=== PATIENT | male | born 1935 | race Caucasian/White ===

== ENCOUNTER 2021-10-20 16:51 | Emergency (ER) | payer MEDICARE ==
[~2021-10-20] VITALS: Ht 162.6 cm; Wt 62.7 kg
--- NOTE | 2021-10-20 17:11 | PHYS DOC ---
General Adult EDM: Chief Complaint: MECHANICAL FALL HPI: HPI: Patient is an 86-year-old male who presents to the emergency department today following up's fall from standing that occurred 2 hours prior to arrival. Patient reports that he tripped and fell. He reports hitting his head. He is reporting left shoulder bilateral rib pain and low back pain. Patient denies blood thinner use, dizziness, loss of bowel or bladder although he has a history of urinary incontinence due to prostate cancer, saddle anesthesias, nausea, vomiting, neck pain, abdominal pain, chest wall pain. (ARNOLD LUGO APRN) Review of Systems: Review of Systems: HENT: see HPI Cardiovascular: see HPI GI: see HPI : see HPI Musculoskeletal: see HPI Neurologic:see HPI (ARNOLD LUGO APRN) Physical Exam: PE: Constitutional: Well developed, well nourished, no acute distress, non-toxic appearance. [] HENT: Normocephalic, atraumatic, bilateral external ears normal, oropharynx moist, no oral exudates, nose normal. [] Eyes: PERRL, EOMI, conjunctiva normal, no discharge. [] Neck: Normal range of motion, no bony spinal tenderness, supple, no stridor. [] Cardiovascular:Heart rate regular rhythm, no murmur [] Lungs & Thorax: Bilateral breath sounds clear to auscultation, pain with palpation to anterior and posterior portions of left ribs, no flail segments [] Abdomen: Bowel sounds normal, soft, no tenderness, no masses, no pulsatile masses. [] Skin: Warm, dry, no erythema, no rash. [] Back: Lumbar tenderness with palpation, no obvious deformities Extremities: No tenderness, no cyanosis, no clubbing, ROM intact, no edema. [] Left shoulder: Obvious deformity noted to left shoulder, decreased extension due to pain, neuro intact Neurologic: Alert and oriented X 3, normal motor function, normal sensory function, no focal deficits noted. [] Psychologic: Affect normal, judgement normal, mood normal. [] (ARNOLD LUGO APRN) EKG: EKG: [] (ARNOLD LUGO APRN) Radiology/Procedures: Radiology/Procedures: []PROCEDURE: CT LUMBAR SPINE WO CONTRAST Exam: CT of chest, abdomen and pelvis without contrast. CT lumbar spine INDICATION: Fall TECHNIQUE: Sequential axial images through the chest, abdomen and pelvis obtained without IV contrast. Sagittal and coronal reformatted images were reconstructed from the axial data and reviewed. Cone-down reconstructed images of the lumbar spine were also reviewed. Exposure: One or more of the following in the visualized dose reduction techniques were utilized for this examination: 1. Automated exposure control 2. Adjustment of the MA and/or KV according to patient size 3. Use of iterative of reconstructive technique Comparisons: None FINDINGS: Visual is portions of the thyroid are unremarkable. No enlargement isn't lymph nodes are identified. Heart size is normal. No pericardial effusion. Thoracic aorta has normal course and caliber. Pulmonary artery is not enlarged. Airways are patent. No consolidation or pneumothorax. There are innumerable pulmonary nodules diffusely throughout the lungs the largest nodule in the right middle lobe measuring approximately 1.7 cm. No pleural effusion or thickening. Evaluation of solid organs is limited secondary to noncontrast technique. There are several hypoattenuating masses noted diffusely throughout the liver, largest in the anterior right hepatic lobe which measures approximately 3 cm in diameter. Spleen is mildly enlarged measuring 14.3 cm in long axis. Pancreas, gallbladder and adrenals are unremarkable. No perinephric inflammation or hydronephrosis. Several hypoattenuating lesions noted within the kidneys bilaterally incompletely characterized on noncontrast study. No renal or ureteral calculi are identified. Bladder is decompressed not well evaluated. Prostate is not enlarged. Large hiatal hernia containing majority the stomach, transverse colon and small bowel. Remainder of the large and small bowel are unremarkable. No free intra- abdominal air or fluid. No obstruction. There are several soft tissue nodules in the mesentery largest in the left paracolic gutter measuring up to 2.4 cm in diameter. Abdominal aorta has normal course and caliber. No enlarged intra-abdominal nodes are identified. Nondisplaced fractures involving the anterolateral left sixth and seventh ribs. Lumbar spine: Scoliotic curvature lumbar spine. Vertebral body heights are well-maintained. Fracture to the lumbar spine is not identified. Multilevel spondylotic changes lumbar spine with degenerative disc disease greatest at L2-L3, L3-L4 and L4-L5. Mild bilateral facet arthropathy is also noted lumbar spine. IMPRESSION: 1. Mildly displaced fracture involving the left anterolateral sixth and seventh rib. 2. Innumerable pulmonary nodules throughout the lungs favored represent metastatic disease. 3. Numerous hypoattenuating nodules in the liver, likely related to metastatic disease. 4. Several soft tissue mesenteric nodules as described above. 5. No acute traumatic injury at the lumbar spine. Electronically signed by: Asiya Mott MD (10/20/2021 6:16 PM) [facility] DICTATED AND SIGNED BY: ASIYA MOTT MD DATE: 10/20/21 1805 CC: ARNOLD LUGO APRN; KRISTEN POWER MD ~ PROCEDURE: SHOULDER 2+V LEFT Exam: Left shoulder 3 views INDICATION: Fall TECHNIQUE: Frontal view of the left shoulder with internal and external rotation and transscapular Y views Comparisons: None FINDINGS: Bone mineralization is normal. No acute or healed fractures. Soft tissues are unremarkable. Joint spaces are well-maintained. IMPRESSION: No acute osseous abnormality Electronically signed by: Asiya Mott MD (10/20/2021 5:38 PM) [facility] DICTATED AND SIGNED BY: ASIYA MOTT MD DATE: 10/20/21 1737 CC: EMERGENCY,DEPARTMENT; ARNOLD LUGO APRN; KRISTEN POWER MD ~ SEX: M EXAM STATUS: REG ER ORD. PHYSICIAN: ARNOLD LUGO APRN REASON: fall PROCEDURE: CT HEAD AND CERVICAL SPINE WO CT HEAD AND C-SPINE WO Clinical indications: Reason: fall /head injury and neck pain. NONCONTRAST HEAD CT COMPARISON: None available. Technique: Noncontrast axial cross sectional scanning of the head was performed. PQRS compliance Statement One or more of the following individualized dose reduction techniques were utilized for this study: 1. Automated exposure control 2. Adjustment of the mA and/or kV according to patient size 3. Use of iterative reconstruction technique Findings: No acute intracranial hemorrhage or midline shift or mass-effect or hydrocephalus or extra-axial fluid collection is seen. Bilateral moderate periventricular white matter hypodensity is seen consistent with chronic small vessel ischemic disease in this age group. No skull fracture or pneumocephalus is seen. No opacification of the mastoid sinuses or the middle ear cavities is seen. There is nodular mucosal thickening of the right sphenoid sinus. IMPRESSION: No acute intracranial hemorrhage is seen. Moderate chronic small vessel ischemic disease. CT STUDY OF THE CERVICAL SPINE WITHOUT CONTRAST TECHNIQUE: Noncontrast helical CT scanning of the cervical spine was performed. Multiplanar 2-D reconstructions were generated. FINDINGS: No acute fracture is seen. No lytic process or discitis is seen. There is grade 1 anterolisthesis of C3-4 and C4-5 and C5-6. Degenerative facet arthropathy is seen. Some facet joints are fused. There is no perching of facet joints. Spinous processes are intact. No prevertebral soft tissue swelling is evident. There is a left apical lung nodule which is not completely seen in this study. It measures 8 mm in size. IMPRESSION: No acute cervical spine fracture. Degenerative cervical spondylosis. 8 mm left apical lung nodule. Electronically signed by: Raphael Brumfield MD (10/20/2021 6:00 PM) [id number] DICTATED AND SIGNED BY: RAPHAEL BRUMFIELD MD DATE: 10/20/211751 CC: ARNOLD LUGO APRN; KRISTEN POWER MD ~ (ARNOLD LUGO APRN) Heart Score: C/O Chest Pain: N/A Risk Factors: Risk Factors: DM, Current or recent (<one month) smoker, HTN, HLP, family history of CAD, obesity. Risk Scores: Score 0 - 3: 2.5% MACE over next 6 weeks - Discharge Home Score 4 - 6: 20.3% MACE over next 6 weeks - Admit for Clinical Observation Score 7 - 10: 72.7% MACE over next 6 weeks - Early Invasive Strategies (ARNOLD LUGO APRN) Course & Med Decision Making: Course & Med Decision Making Pertinent Labs and Imaging studies reviewed. (See chart for details) [] Patient presents to the emergency department following a fall with complaints of left shoulder right lateral rib low back pain. Imaging performed of patient's head, neck, lumbar spine, left shoulder and chest abdomen and pelvis. CT scan of head and neck showed no acute findings. Shoulder x-ray was negative for acute fracture. Lumbar scan was negative. Patient is noted to have a left anterior lateral sixth and seventh rib fracture with pulmonary nodules and liver nodules likely met metastasis. I discussed with patient his rib fractures and his age and the risks associated with rib fractures including severe pain and pneumonia. He is alert and oriented and capable of making his own medical decisions. At this time, patient's oxygen saturation is 96% on room air. Patient's son is at his bedside. Patient does not want to be admitted. He will be sent home with pain medication and incentive spirometer. Patient advised to monitor oxygen saturations at home and follow-up with his primary care provider tomorrow. Patient's son is agreeable to care plan and reports that he will stay with the patient today. (ARNOLD LUGO NECK BAND MAKER) Course & Med Decision Making Did not see or evaluate patient. Did not discuss patient with COLLAR FOLDER OPERATOR. Generally agree with COLLAR FOLDER OPERATOR's work-up and disposition per note (AVI SÁNCHEZ MD) Dragon Disclaimer: Dragon Disclaimer: This electronic medical record was generated, in whole or in part, using a voice recognition dictation system. (ARNOLD LUGO NECK BAND MAKER) Departure Departure: Impression: Primary Impression: Rib fracture Qualified Codes: S22.42XA - Multiple fractures of ribs, left side, initial encounter for closed fracture Disposition: HOME / SELF CARE / HOMELESS Condition: STABLE Referrals: KRISTEN POWER MD (PCP) Patient Instructions: Rib Fracture Additional Instructions: You were seen in the emergency department following a fall. You were noted to have left sixth and seventh rib fractures. You are being discharged home with pain medication. As we discussed, this may cause GI upset so you need to take with food. This medication is hydrocodone and Tylenol in combination tablet so caution taking any additional Tylenol with this medication. This medication may cause sedation so do not take any need to be alert, driving a vehicle or with alcohol. You will need to use the incentive spirometer at least every 2 hours while awake. This will ensure that you are taking deep breaths and fully expanding your lungs to avoid development of pneumonia. I would advise you to purchase a pulse oximeter from the pharmacy just to monitor your oxygen saturations at home. If they drop below 90% you should return to the emergency department immediately. Please follow-up with your primary care provider tomorrow. Return to the emergency department if you develop shortness of breath, chest pain, worsening of your pain, any new injuries, high fevers refractory to treatment, weakness, intractable nausea or vomiting or any new or worsening concerns. Scripts Hydrocodone Bit/Acetaminophen (HYDROCODONE-APAP 5-325 ) 1 Each Tablet 1 TAB PO PRN Q6HRS PRN for PAIN for 2 Days, #8 TAB 0 Refills Prov: ARNOLD LUGO APRN 10/20/21 ARNOLD LUGO APRN Oct 20, 2021 17:11 AVI SÁNCHEZ MD Oct 20, 2021 20:27
--- NOTE | 2021-10-20 17:40 | RAD ---
Exam: Left shoulder 3 views INDICATION: Fall TECHNIQUE: Frontal view of the left shoulder with internal and external rotation and transscapular Y views Comparisons: None FINDINGS: Bone mineralization is normal. No acute or healed fractures. Soft tissues are unremarkable. Joint spa marisabel are well-maintained. IMPRESSION: No acute osseous abnormality Electronically signed by: Asiya Sanz MD (10/20/2021 5:38 PM) [facility]
--- NOTE | 2021-10-20 17:43 | RAD ---
Exam: Chest with bilateral RIBS 2 views INDICATION: Fall TECHNIQUE: Frontal view of the chest with frontal and oblique views of the bilateral ribs Comparisons: None FINDINGS: The cardiomediastinal silhouette and pulmonary vessels are within normal limits. The lung and pleural spaces are clear. Large hiatal hernia No displaced rib fracture IMPRESSION: 1. No acute cardiopulmonary process. 2. No displaced rib fracture. Electronically signed by: Asiya Sanz MD (10/20/2021 5:41 PM) [facility]
--- NOTE | 2021-10-20 18:02 | RAD ---
CT HEAD AND C-SPINE WO Clinical indications: Reason: fall /head injury and neck pain. NONCONTRAST HEAD CT COMPARISON: None available. Technique: Noncontrast axial cross sectional scanning of the head was performed. PQRS compliance Statement One or more of the following individualized dose reduction techniques were utilized for this study: 1. Automated exposure control 2. Adjustment of the mA and/or kV according to patient size 3. Use of iterative reconstruction technique Findings: No acute intracranial hemorrhage or midline shift or mass-effect or hydrocephalus or extra- axial fluid collection is seen. Bilateral moderate periventricular white matter hypodensity is seen c onsistent with chronic small vessel ischemic disease in this age group. No skull fracture or pneumoce phalus is seen. No opacification of the mastoid sinuses or the middle ear cavities is seen. There is nodular mucosal thickening of the right sphenoid sinus. IMPRESSION: No acute intracranial hemorrhage is seen. Moderate chronic small vessel ischemic disease. CT STUDY OF THE CERVICAL SPINE WITHOUT CONTRAST TECHNIQUE: Noncontrast helical CT scanning of the cervical spine was performed. Multiplanar 2-D recon structions were generated. FINDINGS: No acute fracture is seen. No lytic process or discitis is seen. There is grade 1 anterolis thesis of C3-4 and C4-5 and C5-6. Degenerative facet arthropathy is seen. Some facet joints are fused . There is no perching of facet joints. Spinous processes are intact. No prevertebral soft tissue swe lling is evident. There is a left apical lung nodule which is not completely seen in this study. It m easures 8 mm in size. IMPRESSION: No acute cervical spine fracture. Degenerative cervical spondylosis. 8 mm left apical lung nodule. Electronically signed by: Cristhian Brumfield MD (10/20/2021 6:00 PM) [id number]
--- NOTE | 2021-10-20 18:19 | RAD ---
Exam: CT of chest, abdomen and pelvis without contrast. CT lumbar spine INDICATION: Fall TECHNIQUE: Sequential axial images through the chest, abdomen and pelvis obtained without IV contrast . Sagittal and coronal reformatted images were reconstructed from the axial data and reviewed. Cone-d own reconstructed images of the lumbar spine were also reviewed. Exposure: One or more of the following in the visualized dose reduction techniques were utilized for this examination: 1. Automated exposure control 2. Adjustment of the MA and/or KV according to patient size 3. Use of iterative of reconstructive technique Comparisons: None FINDINGS: Visual is portions of the thyroid are unremarkable. No enlargement isn't lymph nodes are identified. Heart size is normal. No pericardial effusion. Thoracic aorta has normal course and caliber. Pulmonar y artery is not enlarged. Airways are patent. No consolidation or pneumothorax. There are innumerable pulmonary nodules diffuse ly throughout the lungs the largest nodule in the right middle lobe measuring approximately 1.7 cm. No pleural effusion or thickening. Evaluation of solid organs is limited secondary to noncontrast technique. There are several hypoattenuating masses noted diffusely throughout the liver, largest in the anterio r right hepatic lobe which measures approximately 3 cm in diameter. Spleen is mildly enlarged measuri ng 14.3 cm in long axis. Pancreas, gallbladder and adrenals are unremarkable. No perinephric inflammation or hydronephrosis. Several hypoattenuating lesions noted within the kidne ys bilaterally incompletely characterized on noncontrast study. No renal or ureteral calculi are iden tified. Bladder is decompressed not well evaluated. Prostate is not enlarged. Large hiatal hernia containing majority the stomach, transverse colon and small bowel. Remainder of t he large and small bowel are unremarkable. No free intra-abdominal air or fluid. No obstruction. Ther e are several soft tissue nodules in the mesentery largest in the left paracolic gutter measuring up to 2.4 cm in diameter. Abdominal aorta has normal course and caliber. No enlarged intra-abdominal nodes are identified. Nondisplaced fractures involving the anterolateral left sixth and seventh ribs. Lumbar spine: Scoliotic curvature lumbar spine. Vertebral body heights are well-maintained. Fracture to the lumbar spine is not identified. Multilevel spondylotic changes lumbar spine with degenerative disc disease greatest at L2-L3, L3-L4 a nd L4-L5. Mild bilateral facet arthropathy is also noted lumbar spine. IMPRESSION: 1. Mildly displaced fracture involving the left anterolateral sixth and seventh rib. 2. Innumerable pulmonary nodules throughout the lungs favored represent metastatic disease. 3. Numerous hypoattenuating nodules in the liver, likely related to metastatic disease. 4. Several soft tissue mesenteric nodules as described above. 5. No acute traumatic injury at the lumbar spine. Electronically signed by: Asiya Sanz MD (10/20/2021 6:16 PM) [facility]
[2021-10-20] MEDS ORDERED: HYDR-2155 PO (18:40)
[2021-10-20 19:04] VITALS: BP 150/85
== END 2021-10-20 19:06 | disposition home or self-care (01) ==
LOC: ER 16:51
DX: S22.42XA Multiple fractures of ribs, left side, initial encounter for closed fracture (principal); W01.0XXA Fall on same level from slipping, tripping and stumbling without subsequent striking against object, initial encounter; Y93.89 Activity, other specified; Y92.89 Other specified places as the place of occurrence of the external cause; Y99.8 Other external cause status
CPT/HCPCS: 70450; 71111; 71250; 72125; 72131; 73030; 74176; 99284

== ENCOUNTER 2021-11-02 19:31 | Emergency (ER) | payer MEDICARE ==
[~2021-11-02] VITALS: Ht 162.6 cm; Wt 62.7 kg
[~2021-11-02 19:31] MED LIST: HYDR-2155 PO
--- NOTE | 2021-11-02 19:47 | PHYS DOC ---
Past History Past Medical History: Arthritis, GERD Additional Past Medical Histor: prostate cancer Past Medical History Hx. of large Hiatal Hernia Past Surgical History: Other Additional Past Surgical Histo: ing hernia bilat; prostate surgery Alcohol Use: None General Adult EDM: Chief Complaint: ABDOMINAL PAIN HPI: HPI: ..." I ve been hurting in my stomach today.. I have not been eating today.. because I dyllan hurt all over... I am out of my stomach med.. I don't remember what it is.. I usually see ... Antonio..Adam Vallecillo....;"... I know I got a bad hiatal hernia.. that is always giving me problems.." Patient is a 86 year old male who presents with above hx and complaints generalized abdomen pain. Some focal rebound findings in periumbilical area and right upper quadrant. Patient denies any intake of bad food. No history of tarry stools. No history of travel. No history of fever or chills. No spec [facility] history of ill contacts. . Patient has been followed with Dr. Antonio Vallecillo for care. Patient did get Moderna vaccination x3. Patient did not get flu vaccination this season. Patient does have past history of gastritis, hiatal hernia, gastric ulcer, constipation, prostate cancer status post prostatectomy by Dr. Patel., arthritis, possible metastatic spread of prostate cancer.. Patient recently had a fall resulted in rib fractures back on October 20.. Pt accompanied with his son-can be also contacted at [phone]. Pt. follows with Dr. Ansley Vallecillo as primary. Review of Systems: Review of Systems: Constitutional: Denies fever or chills Eyes: Denies change in visual acuity HENT: Denies nasal congestion or sore throat Respiratory: Denies cough or shortness of breath Cardiovascular: Denies chest pain or edema GI: Complains of generalized abdominal pain, nausea. Denies, vomiting, bloody stools or diarrhea : Denies dysuria Musculoskeletal: Complains of generalized chronic joint pain Integument: Denies rash Neurologic: Denies headache, focal weakness or sensory changes Endocrine: Denies polyuria or polydipsia Lymphatic: Denies swollen glands Psychiatric: Denies depression or anxiety Family History: Family History: Noncontributory to presentation Current Medications: Current Meds: See nursing for home meds Allergies: Allergies: Allergies Coded Allergies Type Severity Reaction Last Updated Verified No Known Drug Allergies 10/20/21 No Physical Exam: PE: Constitutional: moderate acute distress,ill in appearance. [] HENT: Normocephalic, atraumatic, bilateral external ears normal, oropharynx dry, no oral exudates, nose normal. [] Eyes: PERRLA, EOMI, conjunctiva normal, no discharge. Glasses Neck: Normal range of motion, no tenderness, supple, no stridor. [] Cardiovascular: Tachycardia heart rate regular rhythm, no murmur [], PMI to Lt. Lungs & Thorax: Bilateral breath sounds equal apex with some basilar crackles on auscultation [] tenderness over Lt. chest wall. Abdomen: Bowel sounds decreased, soft, generalized tenderness,, no pulsatile masses. [] Rebound epigastric and left upper quadrant. Old surgery scars. Skin: Warm, dry, no erythema, no rash. Poor turgor. Back: No tenderness, no CVA tenderness. Kyphosis and scoliosis Extremities: No tenderness, no cyanosis, no clubbing, ROM intact, no edema. Arthritic changes. No cording appreciated. No true psoas findings on heel tap. Neurologic: Alert and oriented X 3, moves all extremities on request, has distal sensory,, no focal deficits noted. [] Psychologic: Affect anxious, judgement normal, mood depressed. EKG: EKG: My interpretation of EKG shows a sinus rhythm at 94 bpm. There are occasional premature complexes. Low voltages throughout all leads. No findings of acute STEMI of contralateral changes. Time of EKG is 2214 hrs. [] Radiology/Procedures: Radiology/Procedures: [][place] [address] IMAGING REPORT Signed PATIENT: LISANDRA WOO ACCOUNT: [id number] : 1935 LOCATION: ER AGE: 86 SEX: M EXAM STATUS: REG ER ORD. PHYSICIAN: LAKESHA MARTINEZ MD REASON: abdomen pain PROCEDURE: ACUTE ABDOMEN SERIES Abdominal Series dated 11/02/2021. Comparison: 10/20/2021 Clinical Indication: Abdominal pain. Findings: Single upright PA view the chest shows normal heart and mediastinal contours. Large hiatal hernia. Patchy and linear opacity at both lung bases, likely scar or atelectasis. No consolidation or pleural effusion. No pneumothorax. Flat and upright views of the abdomen show nondilated gas filled loops of bowel. No air-fluid level on the upright view. No abnormal calcifications are iden tified. There is no evidence of pneumoperitoneum. Small amount stool throughout the colon. There is scoliotic curvature of the thoracolumbar spine. Impression chest: 1. No acute radiographic abnormality. 2. Large hiatal hernia, unchanged Impression abdomen: Non-obstructive bowel gas pattern. Electronically signed by: Andi Knight MD (11/02/2021 9:41 PM) [facility] [place] AND SIGNED BY: ANDI KNIGHT MD DATE: 11/02/212139 CC: LAKESHA MARTINEZ MD; ANTONIO VALLECILLO MD ~ PATIENT: LISANDRA WOO ACCOUNT: [id number] : 1935 LOCATION: ER AGE: 86 SEX: M EXAM STATUS: REG ER ORD. PHYSICIAN: LAKESHA MARTINEZ MD REASON: amador umbilical pain, PROCEDURE: CT ABD PEL W/ORAL CONTRST ONLY Study: CT abdomen/pelvis with intravenous contrast Indication: Periumbilical pain. Comparison: 10/20/2021 Technique: Helical CT imaging performed of the abdomen and pelvis after the intravenous administration of contrast. Sagittal and coronal reformats were obtained. One or more of the following individualized dose reduction techniques were utilized for this examination: 1. Automated exposure control 2. Adjustment of the mA and/or kV according to patient size 3. Use of iterative reconstruction technique. Findings: Redemonstration of numerous pulmonary nodules throughout the imaged lungs. Small volume pleural effusion on the left. Basilar atelectasis. Very large hiatal hernia with all of the stomach above the diaphragm. The herniated stomach is dilated and there is pneumomediastinum. As before multiple metastatic foci to the liver. Limited assessment of the gallbladder without overt dilatation. Nondilated biliary tree. Similar configuration of the pancreas. Abnormal heterogeneous attenuation of the spleen. There is some gas along the anterior tip of the spleen. Unchanged adrenal glands. Left renal cystic focus. Small intrarenal stones at the lower pole on the right. No hydronephrosis. Decompressed urinary bladder. Colonic diverticulosis no evidence for colonic perforation. Thick walled and edematous jejunum. It appears as if the distal stomach/duodenum has perforated just below the diaphragmatic hiatus where there are pockets of free gas as well as free contrast. Prominent volume pneumoperitoneum. Gas extends into a supraumbilical hernia. Small volume free fluid which is complex. Scattered mesenteric edema. Redemonstration of numerous metastatic implants such as adjacent to the left kidney. Extensive vascular calcifications. Diffuse osteopenia. Severe multifocal degenerative changes. No newly seen osseous abnormality from the recent comparison. Impression: 1. Development of large volume pneumoperitoneum which extends into a very large hiatal hernia sac which contains entirety of the stomach. Free contrast as well as complex free fluid within the abdomen and pelvis with the suspected site of bowel perforation near the diaphragmatic hiatus in the expected region of the gastroduodenal junction, such as on image 39 series 4. This may be ischemic in nature such as from twisting of vasculature. Possible associated infarction of the spleen. 2. Redemonstration of multifocal metastatic disease as described on 10/20/2021 comparison. FOR INTERNAL CODING PURPOSES Critical result: Findings discussed with LAKESHA MARTINEZ MD on at 11/03/2021 2:23 AM. The ER was first made aware of critical findings at 0200 hours. RESULT CODE: (C) Electronically signed by: MORE MONROY MD (11/03/2021 2:23 AM) [facility] DICTATED AND SIGNED BY: MORE MONROY MD DATE: 11/03/21 0156 CC: LAKESHA MARTINEZ MD; ANTONIO VALLECILLO MD ~ Heart Score: C/O Chest Pain: N/A HEART Score for Chest Pain: HEART Score for Chest Pain Response (Comments) Value History Slighlty/Non-Suspicious 0 ECG Nonspecific Repolarizatio 1 Age > 65 2 Risk Factors 1 or 2 Risk Factors 1 Troponin < Normal Limit 0 Total 4 Risk Factors: Risk Factors: DM, Current or recent (<one month) smoker, HTN, HLP, family h istory of CAD, obesity. Risk Scores: Score 0 - 3: 2.5% MACE over next 6 weeks - Discharge Home Score 4 - 6: 20.3% MACE over next 6 weeks - Admit for Clinical Observation Score 7 - 10: 72.7% MACE over next 6 weeks - Early Invasive Strategies Course & Med Decision Making: Course & Med Decision Making Pertinent Labs and Imaging studies reviewed. (See chart for details) Nursing - unable place NG or OG Started on Zosyn and Flagyl-fluid bolus Discussed presentation, testing and tx. plan with and - Pt. transferred to [facility] -ICU. Impression: 1. Abdomen Pain 2. History of very large hiatal hernia-which contains stomach 3. Small bowel perforation-significant pneumoperitoneum/ and free fluid- site possible at proximal small bowel. 4. Multiple pulmonary nodules - appears metastatic 5. Multiple nodules in Liver- appears metastatic 6. Lt. Rib Frx 6 & 7th 7. Dehydration 8. Hx. Prostate Cancer -status post prostatectomy 2014 9. Elevated BUN 43/Creat. 2.1- Renal Insuf. 10.DM - glucose 221 11.Elevated AST 51, Alt 64 12.Past hx Gastric Ulcer- EGD 2 yrs ago [] Dragon Disclaimer: Dragon Disclaimer: This electronic medical record was generated, in whole or in part, using a voice recognition dictation system. Departure Departure: Referrals: ANTONIO VALLECILLO MD (PCP) [place] Disclaimer This chart was dictated in whole or in part using Voice Recognition software in a busy, high-work load, and often noisy Emergency Department environment. It may contain unintended and wholly unrecognized errors or omissions. Dragon Disclaimer This chart was dictated in whole or in part using Voice Recognition software in a busy, high-work load, and often noisy Emergency Department environment. It may contain unintended and wholly unrecognized errors or omissions. LAKESHA MARTINEZ MD Nov 02, 2021 19:47
[2021-11-02] MEDS ORDERED: ONDANSETRON PF 4 MG/2 ML VIAL. IVP ONE (20:15)
[2021-11-02] MEDS ORDERED: IV RINGERS SOLUTION,LACTATED 1,000 ML IV SCH (20:15)
[2021-11-02] MEDS ORDERED: FAMOTIDINE 20 MG/2 ML VIAL IVP ONE (20:15)
[2021-11-02] MEDS ORDERED: KETOROLAC 30 MG/ML VIAL. IVP ONE (20:15)
[2021-11-02 21:44] LABS: BASO % 0 % (0-3); EOS % 0 % (0-3); HEMATOCRIT 52.8 % (39.0-53.0); HEMOGLOBIN 17.3 g/dL (13.0-17.5); LYMPH # 0.4 x10^3/uL (1.0-4.8); LYMPH % 6 % (24-48); MEAN CORPUSCULAR HEMOGLOBIN 29 pg (25-35); MEAN CORPUSCULAR HGB CONC 33 g/dL (31-37); MEAN CORPUSCULAR VOLUME 89 fL (79-100); MONO # 0.5 x10^3/uL (0.0-1.1); MONO % 7 % (0-9); NEUT % 87 % (31-73); PLATELET COUNT 384 x10^3/uL (140-400); RED BLOOD COUNT 5.95 x10^6/uL (4.30-5.70); RED CELL DISTRIBUTION WIDTH 14.4 % (11.5-14.5); WHITE BLOOD COUNT 6.9 x10^3/uL (4.0-11.0)
--- NOTE | 2021-11-02 21:44 | RAD ---
Abdominal Series dated 11/02/2021. Comparison: 10/20/2021 Clinical Indication: Abdominal pain. Findings: Single upright PA view the chest shows normal heart and mediastinal contours. Large hiatal hernia. Pa tchy and linear opacity at both lung bases, likely scar or atelectasis. No consolidation or pleural e ffusion. No pneumothorax. Flat and upright views of the abdomen show nondilated gas filled loops of bowel. No air-fluid level o n the upright view. No abnormal calcifications are identified. There is no evidence of pneumoperitone um. Small amount stool throughout the colon. There is scoliotic curvature of the thoracolumbar spine. Impression chest: 1. No acute radiographic abnormality. 2. Large hiatal hernia, unchanged Impression abdomen: Non-obstructive bowel gas pattern. Electronically signed by: Andi Knight MD (11/02/2021 9:41 PM) [place]
[2021-11-02 21:55] LABS: CALCIUM 9.6 mg/dL (8.5-10.1); CREATININE 2.1 mg/dL (0.7-1.3); GFR 30.2; POTASSIUM 3.8 mmol/L (3.5-5.1)
[2021-11-02] MEDS ORDERED: MORPHINE SULFATE 10 MG/ML SYRINGE. SQ ONE (22:00)
[2021-11-02 22:01] LABS: ALBUMIN 3.8 g/dL (3.4-5.0); DIRECT BILIRUBIN 0.3 mg/dL (0.0-0.2); TOTAL PROTEIN 7.5 g/dL (6.4-8.2)
[2021-11-02] MEDS ORDERED: CONTRAST GIVEN. MC PRN (22:45)
[2021-11-02] MEDS ORDERED: IOHEXOL 240 MG/ML 50ML VIAL. PO ONE (23:00)
[2021-11-02] MEDS ORDERED: IV RINGERS SOLUTION,LACTATED 1,000 ML IV ONE (23:00)
[2021-11-02 23:15] LABS: INFLUENZA A PATIENT NEGATIVE (NEGATIVE); INFLUENZA B PATIENT NEGATIVE (NEGATIVE)
[2021-11-02 23:24] LABS: BACTERIA,URINE MANY /HPF (0-FEW); CLARITY,URINE CLEAR; COLOR,URINE YELLOW; GLUCOSE,URINE NEG (NEG); NITRITE,URINE NEG (NEG); RBC,URINE 20-40 /HPF (0-2); SQUAMOUS EPITHELIAL CELL,UR MOD /LPF; UROBILINOGEN,URINE 0.2 mg/dL (0.2 mg/dL)
[2021-11-02 23:25] LABS: HYALINE CASTS, URINE MANY /HPF
--- NOTE | 2021-11-03 00:04 | EKG ---
[address] [address] Test Date: 2021-11-02 Test Time: 22:14:04 Pat Name: LISANDRA WOO Department: Room: Gender: M Project Geologist: : 1935 Requested By: LAKESHA MARTINEZ Order Number: [id number] Reading MD: Hubert Bunch Measurements Intervals [place] Rate: 94 P: 51 WV: 162 QRS: 52 QRSD: 84 T: 43 QT: 368 QTc: 460 Interpretive Statements SINUS RHYTHM ATRIAL PREMATURE COMPLEX(ES) LOW LIMB LEAD VOLTAGE Electronically Signed On 11-06-2021 17:30:12 CDT by Hubert Bunch
--- NOTE | 2021-11-03 02:26 | RAD ---
Study: CT abdomen/pelvis with intravenous contrast Indication: Periumbilical pain. Comparison: 10/20/2021 Technique: Helical CT imaging performed of the abdomen and pelvis after the intravenous administratio n of contrast. Sagittal and coronal reformats were obtained. One or more of the following individualized dose reduction techniques were utilized for this examinat ion: 1. Automated exposure control 2. Adjustment of the mA and/or kV according to patient size 3. Use of iterative reconstruction technique. Findings: Redemonstration of numerous pulmonary nodules throughout the imaged lungs. Small volume pleural effus ion on the left. Basilar atelectasis. Very large hiatal hernia with all of the stomach above the diap hragm. The herniated stomach is dilated and there is pneumomediastinum. As before multiple metastatic foci to the liver. Limited assessment of the gallbladder without overt dilatation. Nondilated biliary tree. Similar configuration of the pancreas. Abnormal heterogeneous at tenuation of the spleen. There is some gas along the anterior tip of the spleen. Unchanged adrenal glands. Left renal cystic focus. Small intrarenal stones at the lower pole on the r ight. No hydronephrosis. Decompressed urinary bladder. Colonic diverticulosis no evidence for colonic perforation. Thick walled and edematous jejunum. It ap pears as if the distal stomach/duodenum has perforated just below the diaphragmatic hiatus where ther e are pockets of free gas as well as free contrast. Prominent volume pneumoperitoneum. Gas extends in to a supraumbilical hernia. Small volume free fluid which is complex. Scattered mesenteric edema. Redemonstration of numerous metastatic implants such as adjacent to the left kidney. Extensive vascular calcifications. Diffuse osteopenia. Severe multifocal degenerative changes. No newly seen osseous abnormality from e recent comparison. Impression: 1. Development of large volume pneumoperitoneum which extends into a very large hiatal hernia sac wh ich contains entirety of the stomach. Free contrast as well as complex free fluid within the abdomen and pelvis with the suspected site of bowel perforation near the diaphragmatic hiatus in the expected region of the gastroduodenal junction, such as on image 39 series 4. This may be ischemic in nature such as from twisting of vasculature. Possible associated infarction of the spleen. 2. Redemonstration of multifocal metastatic disease as described on 10/20/2021 comparison. FOR INTERNAL CODING PURPOSES Critical result: Findings discussed with LAKESHA MARTINEZ MD on at 11/03/2021 2:23 AM. The ER was first made aware o f critical findings at 0200 hours. RESULT CODE: (C) Electronically signed by: MORE MONROY MD (11/03/2021 2:23 AM) [facility]
[2021-11-03] MEDS ORDERED: IV NORMAL SALINE 50ML 50 ML ONE ×2 (02:50→02:57)
[2021-11-03] MEDS ORDERED: PIPERACILLIN/TAZOBACTAM 4.5 GM VIAL IV ONE (02:57)
[2021-11-03] MEDS ORDERED: PIPERACILLIN/TAZOBACTAM 4.5 GM in IV NORMAL SALINE 50ML 50 ML IV ONE (03:00)
[2021-11-03 04:13] VITALS: BP 100/48
== END 2021-11-03 04:52 | disposition short-term general hospital (02) ==
LOC: ER 19:31
DX: S22.42XA Multiple fractures of ribs, left side, initial encounter for closed fracture (principal); K63.1 Perforation of intestine (nontraumatic); R91.8 Other nonspecific abnormal finding of lung field; E86.0 Dehydration; R79.89 Other specified abnormal findings of blood chemistry; E11.9 Type 2 diabetes mellitus without complications; M19.90 Unspecified osteoarthritis, unspecified site; K21.9 Gastro-esophageal reflux disease without esophagitis; Z20.822 Contact with and (suspected) exposure to COVID-19; W18.39XA Other fall on same level, initial encounter; Y93.89 Activity, other specified; Y92.89 Other specified places as the place of occurrence of the external cause; Y99.8 Other external cause status
CPT/HCPCS: 36415; 74022; 74176; 80048; 80076; 81001; 82150; 82550; 83690; 84484; 85025; 85610; 85730; 87086; 87428; 93005; 96361; 96365; 96366; 96368; 96372; 96375; 99285; J1885; J2270; J2405; J2543; J3490; J7120